=== PATIENT | female | born 1935 | race Caucasian/White ===

== ENCOUNTER 2017-08-18 14:59 | Emergency (ER) | payer MEDICARE ==
[~2017-08-18] VITALS: Ht 154.9 cm; Wt 65.0 kg
[2017-08-18 15:05] VITALS: BP 151/81
== END 2017-08-18 17:30 | disposition home or self-care (01) ==
LOC: ED 16:35
DX: S92.354A Nondisplaced fracture of fifth metatarsal bone, right foot, initial encounter for closed fracture (principal); S93.491A Sprain of other ligament of right ankle, initial encounter; X50.1XXA Overexertion from prolonged static or awkward postures, initial encounter; Y93.89 Activity, other specified; Y99.8 Other external cause status; Y92.410 Unspecified street and highway as the place of occurrence of the external cause
CPT/HCPCS: 99284